=== PATIENT | female | born 1950 | race Hispanic/Latino ===

== ENCOUNTER 2022-02-25 07:12 | Emergency (ER) | payer BC, MEDICARE ==
[2022-02-25] MEDS ORDERED: methylPREDNISolone Sod Succinate 125 MG/2 ML INJ IV ONE (09:05)
[2022-02-25] MEDS ORDERED: IPRATROPIUM/ALBUTEROL SULFATE 3 ML AMPUL.NEB IH ONE (09:06)
[2022-02-25] MEDS ORDERED: guaiFENesin DM 200/20 MG ORAL LIQD 10 ML PO ONE (09:07)
[2022-02-25] MEDS ORDERED: LORazepam 2 MG/ML VIAL ONE (09:26)
--- NOTE | 2022-02-25 09:30 | XRay Report ---
CHEST 1 VIEW INDICATION: cough, wheezing, sob. COMPARISON: None. FINDINGS: Support devices: None. Heart: Normal. Lungs/Pleura: There is prominence of the hilar regions, greater on the right. There are mild increase d interstitial markings primarily in the perihilar regions. No focal consolidation, significant effus ion, or pneumothorax. IMPRESSION: 1. Bilateral hilar prominence, particularly on the right. There appear to be high density right hilar nodes suggestive of chronic granulomatous disease. 2. Mild increased interstitial markings in the perihilar lungs bilaterally. These are nonspecific but could be seen in setting of lower airways disease which could be reactive or infectious/inflammatory . Signer Name: Robbie Anne MD Signed: 02/25/2022 9:25 AM Workstation Name: [id number]
--- NOTE | 2022-02-25 09:37 | Emergency Department Report ---
HPI - General Chief Complaint: Upper Respiratory Infection PUI?: Yes Time Seen by Provider: 02/25/22 08:30 - HPI HPI: 71-year-old obese female with self-reported history of lung cancer in remission x7 years, right upper lobe pneumonectomy per her verbal report, diabetes, hypertension, COPD, ex tobacco abuse, presents for evaluation of fatigue cough and malaise, chest pain or shortness of breath.Pt reports she has been on penic illin x 2 weeks as prescribed by her pcp, but her symptoms are not improving. She states she is fully vaccinated against COVID and has received a booster in the past. No known sick contacts, no travel history. Chest pain is substernal and is tightness and only occurs with coughing. It improves when she is not moving and is not coughing. ED Past Medical Hx - Past Medical History Previous Medical History?: Yes Hx Hypertension: Yes Hx Heart Attack/AMI: Yes Hx of Cancer: Yes (LUNG CANCER) Hx Arthritis: Yes Hx Asthma: Yes Hx COPD: Yes - Surgical History Past Surgical History?: Yes Additional Surgical History: RIGHT UPPER LOBECTOMY - Social History Smoking Status: Former Smoker Substance Use Type: None - Medications Home Medications: Home Medications Medication Instructions Recorded Confirmed Last Taken Type ALBUTEROL NEB's [Proventil 0.083% 2.5 mg IH TID PRN #75 neb 02/25/22 Unknown Rx NEBS] predniSONE [Deltasone] 20 mg PO QDAY 5 Days #15 tab 02/25/22 Unknown Rx ED Review of Systems ROS: Stated complaint: LAVER[place] Other details as noted in HPI Comment: All other systems reviewed and negative Constitutional: see HPI, chills, fever, malaise, weakness Eyes: denies: eye pain, eye discharge, vision change ENT: denies: ear pain, throat pain, dental pain, hearing loss, epistaxis Respiratory: see HPI, cough, orthopnea, shortness of breath, wheezing Cardiovascular: chest pain, dyspnea on exertion Endocrine: no symptoms reported, excessive sweating. denies: flushing, intolerance to cold, increased hunger, increased thirst, increased urine, unexplained weight gain, unexplained weight loss Gastrointestinal: nausea. denies: abdominal pain, vomiting, diarrhea, melena, hematochezia Genitourinary: denies: urgency Musculoskeletal: as per HPI. denies: back pain, joint swelling, arthralgia Skin: denies: as per HPI, rash, lesions, change in color, change in hair/nails, pruritus Neurological: denies: as per HPI, headache, weakness, numbness, paresthesias, confusion Psychiatric: as per HPI. denies: anxiety, depression, auditory hallucinations, visual hallucinations, homicidal thoughts, suicidal thoughts Hematological/Lymphatic: denies: easy bleeding, easy bruising, swollen glands Physical Exam - Physical Exam Vital Signs: Vital Signs 02/25/22 02/25/22 02/25/22 07:17 08:41 08:45 Temperature 97.8 F Pulse Rate 80 76 73 Respiratory 16 16 12 Rate Blood Pressure 100/68 Blood Pressure 138/80 [Left] O2 Sat by Pulse 99 97 Oximetry 02/25/22 09:01 Temperature Pulse Rate 78 Respiratory 16 Rate Blood Pressure 106/71 Blood Pressure [Left] O2 Sat by Pulse 98 Oximetry General: Gen: Obese elderly female, mildly ill-appearing, audibly wheezing, actively coughing, no drooling no stridor mild respiratory distress HEENT: Normocephalic atraumatic pupils equally round and reactive to light extraocular muscles intact sclera anicteric Neck: Full range of motion, no midline spinal tenderness palpation, no JVD, no carotid bruits, no nuchal rigidity CVS: S1-S2 regular rate and rhythm with no gallops rubs or murmurs, chest wall nontender Pulmonary: Diffuse end expiratory wheezes in all lung cary Abdomen: Soft nondistended nontender no guarding or rebound tenderness, no palpable deformities or step-offs, normal active bowel sounds, no hepatosplenomegaly, no pulsatile masses : Deferred Extremities: No cyanosis no clubbing no edema, intact distal peripheral pulses, Integumentary: Skin normal, no petechia no purpura no abscess no lacerations no evidence of trauma no evidence of infection Neuro: Patient is awake alert and oriented to person place time situation, mentating well, cranial nerves II through XII intact, no focal neurodeficits, sensation grossly tact Psych: Calm cooperative, mood affect normal ED Course Vital Signs 02/25/22 02/25/22 02/25/22 07:17 08:41 08:45 Temperature 97.8 F Pulse Rate 80 76 73 Respiratory 16 16 12 Rate Blood Pressure 100/68 Blood Pressure 138/80 [Left] O2 Sat by Pulse 99 97 Oximetry 02/25/22 09:01 Temperature Pulse Rate 78 Respiratory 16 Rate Blood Pressure 106/71 Blood Pressure [Left] O2 Sat by Pulse 98 Oximetry - Reevaluation(s) Reevaluation #1: 02/25/22 14:53 pt states she feels improved after the being given steroids and breathing treatments; lungs are clear to auscultation bilaterally; she denies any reoccuring chest pain ED Medical Decision Making - Lab Data Result diagrams: 02/25/22 09:26 02/25/22 09:26 - EKG Data EKG shows normal: sinus rhythm - EKG Data When compared to previous EKG there are: no significant change Interpretation: no acute changes - Radiology Data Radiology results: report reviewed - Medical Decision Making 71-year-old female with multiple medical comorbidities presents for evaluation of cough body aches and pleuritic chest pain. Vital signs stable. Patient given albuterol Atrovent nebulizer treatments. She was given steroids as well. She was reassessed multiple times and reports significant improvement. Labs reviewed. Patient has been mild hyponatremia but there is no immediate lab available for comparison. Chest x-ray and subsequent CT scan demonstrates no pleural effusions no pneumothorax no pneumonia or obstructive pathology. Lab results and diagnostic imaging results discussed with the patient. She appears well. Patient will be sent home with prescription for prednisone as well as albuterol inhaler treatments. Patient stable for discharge to home. No further emergent work-up warranted. Prior to discharge she was given strict verbal and written return precautions. Patient verbalized understanding of the plan of care Critical care attestation.: If time is entered above; I have spent that time in minutes in the direct care of this critically ill patient, excluding procedure time. ED Disposition Clinical Impression: Cough Disposition: 01 HOME / SELF CARE / HOMELESS Is pt being admited?: No Does the pt Need Aspirin: No Condition: Stable Instructions: Cough, Adult Additional Instructions: Please call your doctor in 1 business day to schedule immediate follow-up appointment for reassessment. This is extremely important. Take prednisone, 60 mg by mouth daily, for the next 5 days. Use your albuterol inhaler 2 puffs every 4 hours for the next 2 to 3 days for wheezing and/or cough. You may use your albuterol machine as well. It is advised that you discontinue taking penicillin for your cough. But please discuss this with your primary care doctor as well. Also please ask your primary care doctor to repeat your sodium level. Your sodium level today was slightly low at 128 (normal: 135-150). This is very important. Return to the nearest emergency department soon as possible if you develop chest pain, shortness of breath, difficulty breathing, any fever 100.4 Fahrenheit or higher, dizziness, lightheadedness, or any other new worrisome symptoms develop Prescriptions: predniSONE [Deltasone] 20 mg PO QDAY 5 Days #15 tab ALBUTEROL NEB's [Proventil 0.083% NEBS] 2.5 mg IH TID PRN #75 neb PRN Reason: Wheezing
[2022-02-25 10:11] LABS: Basophils % (Auto) 0.5 % (0.0-1.8); Eosinophils # (Auto) 0.1 K/mm3 (0.0-0.4); Eosinophils % (Auto) 1.8 % (0.0-4.3); Hematocrit 38.1 % (30.3-42.9); Hemoglobin 13.1 gm/dl (10.1-14.3); Lymphocytes # (Auto) 2.5 K/mm3 (1.2-5.4); Lymphocytes % (Auto) 31.2 % (13.4-35.0); Mean Corpuscular HGB Conc 34 % (30-34); Mean Corpuscular Volume 91 fl (79-97); Monocytes # (Auto) 0.7 K/mm3 (0.0-0.8); Monocytes % (Auto) 9.2 % (0.0-7.3); Platelet Count 297 K/mm3 (140-440); Red Cell Distribution Width 14.2 % (13.2-15.2)
[2022-02-25 10:36] LABS: Alanine Aminotransferase 17 units/L (7-56); Albumin 4.2 g/dL (3.9-5); Blood Urea Nitrogen 11 mg/dL (7-17); Calcium 9.2 mg/dL (8.4-10.2); Hemolysis Index 2
[2022-02-25 10:39] LABS: BUN/Creatinine Ratio 18
--- NOTE | 2022-02-25 14:25 | Cat Scan Report ---
CT CHEST WITHOUT CONTRAST INDICATION / CLINICAL INFORMATION: cough, sob, abnormal cxr; eval for pneumonia. TECHNIQUE: Axial CT images were obtained through the chest without contrast. All CT scans at this [facility] ation are performed using CT dose reduction for ALARA by means of automated exposure control. COMPARISON: No prior CTs. Chest radiograph earlier today. FINDINGS: UPPER ABDOMEN: No acute abnormality. SKELETAL SYSTEM: No acute findings. There are mild chronic compression deformities at T1, T3 and L1. There are postsurgical changes along the posterior right ribs. HEART: No significant abnormality. CORONARY ARTERY CALCIFICATION: Present -- Mild. THORACIC AORTA: No significant abnormality. MEDIASTINUM / POLI: There is a 2.4 x 1.2 cm precarinal node (axial image 40). There are a few additio nal mediastinal nodes which approach 1 cm. PLEURA: There is pleural thickening within the anteromedial right hemithorax. No pleural effusion. No pneumothorax. LUNGS: There has been partial right pneumonectomy. Scarring/round atelectasis is noted within the ant erior right lung. No acute pulmonary findings. Mild COPD changes are noted. ADDITIONAL FINDINGS: None. IMPRESSION: 1. Apparent fullness in the right hilum on chest radiograph is due to smooth pleural thickening along the anteromedial right hemithorax. This pleural thickening extends toward the right hilum and it is difficult to differentiate pleural thickening from potential adenopathy or even recurrence here. 2. There is round/chronic atelectasis in the anterior right lung. 3. There are several mediastinal nodes, the largest of which measures 2.4 x 1.2 cm in the precarinal region. Comparison with prior CT if available would be useful to determine the significance of the nodes and also to evaluate the pleural thickening which extends toward the right hilum. If priors are not avail able or if the pleural thickening appears new/increased, CT/PET should be considered as it would be d ifficult to exclude recurrence in the pleural thickening near the right hilum. Signer Name: Robbie Anne MD Signed: 02/25/2022 2:20 PM Workstation Name: [id number]
[2022-02-25 15:23] VITALS: BP 136/88
== END 2022-02-25 17:34 | disposition home or self-care (01) ==
LOC: ED 07:12
DX: R05.9 Cough, unspecified (principal); I10 Essential (primary) hypertension; I21.9 Acute myocardial infarction, unspecified; M19.90 Unspecified osteoarthritis, unspecified site; J45.909 Unspecified asthma, uncomplicated; Z85.9 Personal history of malignant neoplasm, unspecified
CPT/HCPCS: 36415; 71045; 71250; 80053; 83880; 84484; 85025; 87040; 94640; 96374; 99285; J2060; J2930